=== PATIENT | male | born 1970 | race American Indian/Alaskan Native ===

== ENCOUNTER 2018-05-07 02:03 | Emergency (ER) | payer MEDICAID ==
[2018-05-07] MEDS ORDERED: Acetaminophen/HYDROcodone 325-10 MG Tab PO ONE (02:04)
--- NOTE | 2018-05-07 02:20 | EDM.PDOC ---
ED HPI GENERAL MEDICAL PROBLEM - General Chief Complaint: Upper Extremity Injury/Pain Stated Complaint: BROKEN ARM [id number] Time Seen by Provider: 05/07/18 02:18 Source of Information: Reports: Patient History Limitations: Reports: No Limitations - History of Present Illness INITIAL COMMENTS - FREE TEXT/NARRATIVE: slipped and fell onto left arm tonight. denies head/neck injury or pain. Left Upper Arm Pain Score (Numeric/FACES): 8 - Related Data Allergies Allergy/AdvReac Type Severity Reaction Status Date / Time No Known Allergies Allergy Verified 05/07/18 02:20 Home Meds: Home Meds . [No Known Home Meds] 05/07/18 [History] Social & Family History - Tobacco Use Smoking Status *Q: Current Some Day Smoker Years of Tobacco use: 30 Packs/Tins Daily: 0.1 Used Tobacco, but Quit: No Second Hand Smoke Exposure: Yes - Caffeine Use Caffeine Use: Reports: None - Alcohol Use Date of Last Drink: 05/07/18 - Recreational Drug Use Recreational Drug Use: Yes Drug Use in Last 12 Months: No Recreational Drug Type: Reports: Marijuana/Hashish Review of Systems - Review of Systems Review Of Systems: ROS reveals no pertinent complaints other than HPI. ED EXAM, GENERAL - Physical Exam Exam: See Below Exam Limited By: No Limitations General Appearance: Alert, WD/WN, Mild Distress, Other (discomfort) Eye Exam: Bilateral Eye: PERRL (ess ER @ 4MM) Ears: Hearing Grossly Normal Throat/Mouth: Normal Voice, No Airway Compromise Head: Atraumatic Neck: Non-Tender, Full Range of Motion Respiratory/Chest: No Respiratory Distress Cardiovascular: Regular Rate, Rhythm GI/Abdominal: Soft, Non-Tender Extremities: Other (left arm tender R/P, NV wnl. swollen) Neurological: Alert, Oriented, Normal Cognition, Normal Gait, No Motor/Sensory Deficits Psychiatric: Flat Affect Skin Exam: Warm, Dry, Normal Color Lymphatic: No Adenopathy Course - Vital Signs Last Recorded V/S: Last Vital Signs Temp 36.7 C 05/07/18 02:13 Pulse 66 05/07/18 02:13 Resp 18 05/07/18 02:13 BP 109/77 05/07/18 02:13 Pulse Ox 99 05/07/18 02:13 - Orders/Labs/Meds Meds: Medications Discontinued Medications Generic Name Dose Route Start Last Admin Trade Name Ryan PRN Reason Stop Dose Admin Hydrocodone Bitart/Acetaminophen Confirm 05/07/18 03:08 05/07/18 03:12 [place] 325-10 Mg Administered 05/07/18 03:09 Not Given Dose 1 tab .ROUTE .STK-MED ONE Hydrocodone Bitart/Acetaminophen 1 tab 05/07/18 02:04 [place] 325-10 Mg PO 05/07/18 02:05 .STK-MED ONE - Re-Assessments/Exams Free Text/Narrative Re-Assessment/Exam: 05/07/18 03:[address] Becker orthopedist @ who reviewed the pictures and rec ' immobolizer and f/u Thursday @ ortho clinic. Departure - Departure Time of Disposition: 03:15 Disposition: Home, Self-Care 01 Condition: Fair Clinical Impression: Fracture of humerus Qualifiers: Encounter type: initial encounter Humerus Location: shaft Fracture type: closed Fracture morphology: transverse Fracture alignment: nondisplaced Laterality: left Qualified Code(s): S42.325A - Nondisplaced transverse fracture of shaft of humerus, left arm, initial encounter for closed fracture - Discharge Information Instructions: Humerus Fracture Treated With Immobilization, [id number] Forms: ED Department Discharge Additional Instructions: 1) wear immobilzer until see ORTHOPEDIST 2) call [facility] Thursday [phone] for appointment 3) see clinic tomorrow for pain meds rx togo; norco x 1
[2018-05-07] MEDS ORDERED: Acetaminophen/HYDROcodone 325-10 MG Tab ONE (03:08)
== END 2018-05-07 03:18 | disposition home or self-care (01) ==
LOC: DL.ED 02:03
DX: S42.325A Nondisplaced transverse fracture of shaft of humerus, left arm, initial encounter for closed fracture (principal); F17.210 Nicotine dependence, cigarettes, uncomplicated; W01.10XA Fall on same level from slipping, tripping and stumbling with subsequent striking against unspecified object, initial encounter; W01.0XXA Fall on same level from slipping, tripping and stumbling without subsequent striking against object, initial encounter
CPT/HCPCS: 73060; 99283; A9270